=== PATIENT | male | born 1965 | race African-American/Black ===

== ENCOUNTER 2020-06-26 23:31 | Observation (INO) | payer OTHER, SELFPAY ==
[2020-06-27] MEDS ORDERED: NS 1,000 ML IV SCH (00:15)
[2020-06-27 00:29] LABS: BASO % 0.4 % (0.0-1.0); EOS # 0.2 10^3/uL (0.0-0.5); EOS % 4.3 % (0.0-3.0); HEMATOCRIT 47.6 % (42.0-52.0); HEMOGLOBIN 15.3 g/dl (13.5-17.5); LYMPH # 1.8 10^3/uL (1.5-5.0); LYMPH % 34.7 % (24.0-44.0); MEAN CORPUSCULAR HEMOGLOBIN 25.9 pg (27.0-33.0); MEAN CORPUSCULAR HGB CONC 32.1 g/dl (32.0-36.5); MEAN CORPUSCULAR VOLUME 80.7 fl (80.0-96.0); MONO # 0.5 10^3/uL (0.0-0.8); MONO % 9.9 % (0.0-5.0); NEUTROPHILS # 2.6 10^3/uL (1.5-8.5); NEUTROPHILS % 50.5 % (36.0-66.0); PLATELET COUNT, AUTOMATED 277 10^3/uL (150-450); WHITE BLOOD COUNT 5.1 10^3/uL (4.0-10.0)
[2020-06-27 00:47] LABS: ACETAMINOPHEN LEVEL < 2.0 UG/ML (10.0-30.0); ALBUMIN 3.8 GM/DL (3.2-5.2); ALT/SGPT 45 U/L (12-78); BILIRUBIN,DIRECT 0.1 MG/DL (0.0-0.2); BILIRUBIN,TOTAL 0.3 MG/DL (0.2-1.0); BLOOD UREA NITROGEN 19 MG/DL (7-18); CALCIUM LEVEL 9.3 MG/DL (8.5-10.1); CARBON DIOXIDE LEVEL 27 MEQ/L (21-32); CHLORIDE LEVEL 107 MEQ/L (98-107); CK-MB VALUE MASS 10.6 NG/ML (<3.6); CPK CREATINE PHOSPHOKINASE 840 U/L (39-308); CREATININE FOR GFR 1.34 MG/DL (0.70-1.30); ETHYL ALCOHOL (ETHANOL) < 0.003 % (0.000-0.010); GLOMERULAR FILTRATION RATE 58.9 (>56); GLUCOSE, FASTING 104 MG/DL (70-100); MB/CK RELATIVE INDEX 1.26 (< OR =4); POTASSIUM SERUM 3.8 MEQ/L (3.5-5.1); SALICYLATE LEVEL < 1.7 MG/DL (5.0-30.0); SODIUM LEVEL 140 MEQ/L (136-145); THYROID STIMULATING HORMONE 0.927 uIU/ML (0.358-3.740); TOTAL PROTEIN 6.7 GM/DL (6.4-8.2); TROPONIN I < 0.02 NG/ML (< 0.10)
--- NOTE | 2020-06-27 01:10 | REPVR ---
PROCEDURE INFORMATION: Exam: XR Chest, 1 View Exam date and time: 06/27/2020 12:57 AM Age: 55 years old Clinical indication: Other: AMS; Additional info: Altered mental status TECHNIQUE: Imaging protocol: XR of the chest Views: 1 view. COMPARISON: No relevant prior studies available. FINDINGS: Lungs: Degree of lung inflation is normal. No evidence of pulmonary edema. No focal consolidation or parenchymal lung mass. Pleural space: No pleural effusion or pneumothorax. Heart/Mediastinum: Cardiac silhouette appears normal. No adenopathy or hilar mass. Bones/joints: Osseous structures show no concerning abnormality. IMPRESSION: No acute or focal cardiopulmonary process. Electronically signed by: Ayo Hoang On 06/27/2020 01:09:47 AM
--- NOTE | 2020-06-27 01:13 | REPVR ---
PROCEDURE INFORMATION: Exam: CT Head Without Contrast Exam date and time: 06/27/2020 12:39 AM Age: 55 years old Clinical indication: Pain; Headache; Additional info: Altred mental status TECHNIQUE: Imaging protocol: Computed tomography of the head without contrast. Radiation optimization: All CT scans at this facility use at least one of these dose optimization techniques: automated exposure control; mA and/or kV adjustment per patient size (includes targeted exams where dose is matched to clinical indication); or iterative reconstruction. COMPARISON: No relevant prior studies available. FINDINGS: Brain: No intracranial mass, mass effect or midline shift. No acute intracranial hemorrhage. No CT evidence of acute cortical infarct. Ventricles, cisterns, and sulci are normal in size for age. Bones/joints: No calvarial fracture or destructive process. Paranasal sinuses: Imaged paranasal sinuses are normally aerated. Mastoid air cells: Mastoid air cells and middle ear structures are normally aerated. Orbital cavity: Imaged orbits are unremarkable. Soft tissues: No focal extracranial soft tissue swelling. IMPRESSION: No acute or concerning focal intracranial abnormality. Electronically signed by: Ayo Hoang On 06/27/2020 01:13:29 AM
[2020-06-27 01:42] LABS: AMPHETAMINES LEVEL URINE POSITIVE (NEGATIVE); BARBITURATES URINE NEGATIVE (NEGATIVE); BENZODIAZEPINES URINE NEGATIVE (NEGATIVE); CANNABINOIDS URINE NEGATIVE (NEGATIVE); COCAINE METABOLITE URINE NEGATIVE (NEGATIVE); METHADONE URINE NEGATIVE (NEGATIVE); OPIATES URINE NEGATIVE (NEGATIVE); PHENCYCLIDINE URINE NEGATIVE (NEGATIVE)
[2020-06-27] MEDS ORDERED: NS 1,000 ML IV ONE (02:00)
--- NOTE | 2020-06-27 03:27 | REPVR ---
PROCEDURE INFORMATION: Exam: US Retroperitoneal Limited, Kidneys Exam date and time: 06/27/2020 2:50 AM Age: 55 years old Clinical indication: Abnormal findings; Abnormal lab test; Abnormal kidney function lab tests; Additional info: Acute renal failure TECHNIQUE: Imaging protocol: Real-time ultrasound of the retroperitoneum with image documentation. Examination was focused on the kidneys. COMPARISON: No relevant prior studies available. FINDINGS: Right kidney: No hydronephrosis. Left kidney: 3 x 2.5 cm left renal cyst containing internal low-level echoes. Simple 2.6 cm left renal cyst. No hydronephrosis. IMPRESSION: No acute findings. COMMENTS: Consistent with the [employer]'s Incidental Findings Committee white paper (J Am Dahlia Radiol 2018): Any incidental renal lesion less than 1 cm or classified as too small to characterize, or any incidental cystic renal lesion characterized as simple-appearing, is likely benign. No follow-up imaging is recommended for these lesions per consensus recommendations based on imaging criteria. Electronically signed by: Mike Ward On 06/27/2020 03:27:13 AM
[2020-06-27] MEDS ORDERED: D5W/0.45% SODIUM CHLORIDE 1,000 ML IV SCH (05:08)
[2020-06-27] MEDS ORDERED: ENOXAPARIN 40MG/0.4ML SYRINGE (J1650 PER 10MG) SC ONE (05:15)
[2020-06-27] MEDS ORDERED: GLUCAGON INJ 1MG VIAL SC PRN (05:15)
[2020-06-27] MEDS ORDERED: GLUCOSE 4GM CHEW TABLET PO PRN (05:15)
[2020-06-27] MEDS ORDERED: DEXTROSE 50% 50 ML SYRINGE IV PRN (05:15)
--- NOTE | 2020-06-27 05:16 | HPEPDOC ---
[facility] Medical History & Physical Date of Admission Jun 27, 2020 Date of Service: Jun 27, 2020 History and Physical CHIEF COMPLAINT: altered mental status HISTORY OF PRESENT ILLNESS: (obtunded,Unable to obtain ) 55-year-old -[place] male was found in the parking lot, poorly responsive. Bystander called 911. Patient was brought in by ambulance for further evaluation. According to records, patient was thought to be using LSD. Urine tox screen was positive for methamphetamine. CT of the head and chest x- ray were both negative. CBC, metabolic panel, liver function tests were all within normal limits. Total CPK was 800. Urine for myoglobin is pending. Creatinine was 1.3. Hospitalist was asked to admit for acute toxic encephalopathy intentional use of LSD and acute kidney injury from mild rhabdomyolysis PAST MEDICAL HISTORY: Could not be obtained as patient has altered mental status PAST SURGICAL HISTORY: Could not be obtained as patient has altered mental status SOCIAL HISTORY: Unable to be obtained, recreational drug use with LSD FAMILY HISTORY: Unable to be obtained ALLERGIES: Please see below. REVIEW OF SYSTEMS: Could not be obtained HOME MEDICATIONS: Please see below. PHYSICAL EXAMINATION: VITAL SIGNS: See below GENERAL APPEARANCE: Obtunded, does not follow commands HEENT: No thyromegaly, cervical lymphadenopathy. Dry mucous membranes CARDIOVASCULAR: S1, S2, sinus rhythm LUNGS: Clear to auscultation. No wheezing, rales or rhonchi ABDOMEN: Soft, nontender, nondistended, positive bowel sounds EXTREMITIES: No cyanosis, clubbing or pitting edema NEUROLOGICAL: Obtunded. No facial asymmetry. Could not be completed LABORATORY DATA: See below. IMAGING: Exam: CT Head Without Contrast Exam date and time: 06/27/2020 12:39 AM Age: 55 years old Clinical indication: Pain; Headache; Additional info: Altred mental status TECHNIQUE: Imaging protocol: Computed tomography of the head without contrast. Radiation optimization: All CT scans at this facility use at least one of these dose optimization techniques: automated exposure control; mA and/or kV adjustment per patient size (includes targeted exams where dose is matched to clinical indication); or iterative reconstruction. COMPARISON: No relevant prior studies available. FINDINGS: Brain: No intracranial mass, mass effect or midline shift. No acute intracranial hemorrhage. No CT evidence of acute cortical infarct. Ventricles, cisterns, and sulci are normal in size for age. Bones/joints: No calvarial fracture or destructive process. Paranasal sinuses: Imaged paranasal sinuses are normally aerated. Mastoid air cells: Mastoid air cells and middle ear structures are normally aerated. Orbital cavity: Imaged orbits are unremarkable. Soft tissues: No focal extracranial soft tissue swelling. IMPRESSION: No acute or concerning focal intracranial abnormality. Electronically signed by: Ayo Hoang On 06/27/2020 01:13:29 AM MICROBIOLOGY: Please see below. Exam: XR Chest, 1 View Exam date and time: 06/27/2020 12:57 AM Age: 55 years old Clinical indication: Other: AMS; Additional info: Altered mental status TECHNIQUE: Imaging protocol: XR of the chest Views: 1 view. COMPARISON: No relevant prior studies available. FINDINGS: Lungs: Degree of lung inflation is normal. No evidence of pulmonary edema. No focal consolidation or parenchymal lung mass. Pleural space: No pleural effusion or pneumothorax. Heart/Mediastinum: Cardiac silhouette appears normal. No adenopathy or hilar mass. Bones/joints: Osseous structures show no concerning abnormality. IMPRESSION: No acute or focal cardiopulmonary process. Electronically signed by: Ayo Hoang On 06/27/2020 01:09:47 AM Exam: US Retroperitoneal Limited, Kidneys Exam date and time: 06/27/2020 2:50 AM Age: 55 years old Clinical indication: Abnormal findings; Abnormal lab test; Abnormal kidney function lab tests; Additional info: Acute renal failure TECHNIQUE: Imaging protocol: Real-time ultrasound of the retroperitoneum with image documentation. Examination was focused on the kidneys. COMPARISON: No relevant prior studies available. FINDINGS: Right kidney: No hydronephrosis. Left kidney: 3 x 2.5 cm left renal cyst containing internal low-level echoes. Simple 2.6 cm left renal cyst. No hydronephrosis. IMPRESSION: No acute findings. ASSESSMENT: 55-year-old brought in confused found to be using LSD in his car, admitted for acute toxic encephalopathy Acute toxic encephalopathy Recreational drug use with LSD, intentional Acute kidney injury Rhabdomyolysis Amphetamine use plan: IV fluid hydration, supportive care. Nothing by mouth due to risk of aspiration until patient's mentation returns to baseline Renal ultrasound negative for obstruction or hydronephrosis. Cycle cardiac markers, recheck ammonia level Check for postvoid residual. If urine output is less than 30 miles per hour. DVT prophylaxis with Lovenox. Vital Signs Vital Signs Date Time Temp Pulse Resp B/P (MAP) Pulse Ox O2 Delivery O2 Flow Rate FiO2 06/27/20 01:21 97.9 06/27/20 00:02 84 17 131/82 90 Room Air Laboratory Data Labs 24H Laboratory Tests 2 06/27/20 00:01: Immature Granulocyte % (Auto) 0.2, Neutrophils (%) (Auto) 50.5, Lymphocytes (%) (Auto) 34.7, Monocytes (%) (Auto) 9.9H, Eosinophils (%) (Auto) 4.3H, Basophils (%) (Auto) 0.4, Neutrophils # (Auto) 2.6, Lymphocytes # (Auto) 1.8, Monocytes # (Auto) 0.5, Eosinophils # (Auto) 0.2, Basophils # (Auto) 0.0, Nucleated Red Blood Cells % (auto) 0.0, Anion Gap 6L, Glomerular Filtration Rate 58.9, Calcium Level 9.3, Total Bilirubin 0.3, Direct Bilirubin 0.1, Aspartate Amino Transf (AST/SGOT) 30, Alanine Aminotransferase (ALT/SGPT) 45, Alkaline Phosphatase 99, Total Creatine Kinase 840H, Creatine Kinase MB 10.6H, Creatine Kinase MB Relative Index 1.26, Troponin I < 0.02, Total Protein 6.7, Albumin 3.8, Albumin/Globulin Ratio 1.3, Thyroid Stimulating Hormone (TSH) 0.927, Salicylates Level < 1.7L, Acetaminophen Level < 2.0L, Ethyl Alcohol Level < 0.003 06/27/20 00:30: Urine Color YELLOW, Urine Appearance CLEAR, Urine pH 6.0, Urine Specific [place] 1.016, Urine Protein 1+H, Urine Glucose (UA) NEGATIVE, Urine Ketones NEGATIVE, Urine Blood NEGATIVE, Urine Nitrite NEGATIVE, Urine Bilirubin NEGATIVE, Urine Urobilinogen 0.2, Urine Leukocyte Esterase TRACEH, Urine WBC (Auto) 3, Urine RBC (Auto) 2, Urine Hyaline Casts (Auto) 0, Urine Bacteria (Auto) NEGATIVE, Urine Squamous Epithelial Cells 0, Urine Transitional Epithelial Cells 2, Urine Mucus (Auto) SMALL, Urine Sperm (Auto) , Urine Opiates Screen NEGATIVE, Urine Methadone Screen NEGATIVE, Urine Barbiturates Screen NEGATIVE, Urine Phencyclidine Screen NEGATIVE, Urine Amphetamines Screen POSITIVEH, Urine Benzodiazepines Screen NEGATIVE, Urine Cocaine Metabolite Screen NEGATIVE, Urine Cannabinoids Screen NEGATIVE CBC/BMP Laboratory Tests 06/27/20 00:01 Microbiology Microbiology 06/27/20 Urine Culture, Received Pending Home Medications Unable to Obtain Active Prescriptions or Reported Meds Allergies Coded Allergies: Unable to Assess (Verified Allergy, Unknown, 06/27/20) A-FIB/CHADSVASC A-FIB History Current/History of A-Fib/PAF?: No Current PO Anticoag Therapy: No Age/Risk Factor Scoring CHADSVASC: CHADSVASC Response (Comments) Value Age Risk Factor Age < 65 years old 0 Gender Risk Factor Male 0 Hx of CHF No 0 Hx of HTN No 0 Hx of Stroke/TIA/or VTE No 0 Hx of Diabetes No 0 Hx of Vascular Disease No 0 Total 0 Treatment Treatment ordered: NONE MOIZ RASCON MD Jun 27, 2020 01:58
[2020-06-27 07:48] LABS: CK-MB VALUE MASS 9.5 NG/ML (<3.6); CPK CREATINE PHOSPHOKINASE 657 U/L (39-308); MB/CK RELATIVE INDEX 1.45 (< OR =4); TROPONIN I < 0.02 NG/ML (< 0.10)
--- NOTE | 2020-06-27 10:21 | ECGEPIP ---
[facility] - ED Test Date: 2020-06-26 Pat Name: DIDI MAYORGA Department: Room: [place] [address] Gender: Male Administrative Staff Supervisor: SAGRARIO : 1965 Requested By: RAEANN Jones Order Number: [id number] Reading MD: Raúl Alcantar Measurements Intervals [place] Rate: 85 P: 67 DC: 144 QRS: 27 QRSD: 85 T: 52 QT: 364 QTc: 435 Interpretive Statements SINUS RHYTHM NO PRIORS FOR COMPARISON Electronically Signed on 06-27-2020 10:21:44 EST by Raúl Alcantar
[2020-06-27 10:45] VITALS: BP 111/79
--- NOTE | 2020-06-27 13:28 | DS ---
DATE OF ADMISSION: 06/27/2020 DATE OF DISCHARGE: 06/27/2020 PRINCIPAL DIAGNOSIS: 1. LSD intoxication. 2. Minimal rhabdomyolysis. BRIEF HISTORY: Vasyl Orlando was brought to the Emergency Room after taking LSD. He had a minimally elevated CK as well as it was felt he needed hospitalization. HOSPITAL COURSE: He stayed in the ER in an interim bed. His CK was only 840 on admission, it was 657 this morning. He has no myoglobin in his urine. PHYSICAL EXAMINATION: VITAL SIGNS: Stable. GENERAL APPEARANCE: He is alert and conversant, he is sleeping but wakes up and answers questions appropriately. He is alert and oriented x3. He says he does not want to stay in the hospital. LUNGS: Clear. HEART: Regular rhythm. ABDOMEN: Soft. NEUROLOGIC: Nonfocal. IMPRESSION: Patient had minimal elevation of CK which has improved. I do not think he needs hospitalization. I will ask PFS to see him to offer options for dealing with his drug use and then he can be discharged after seen by PFS. He should follow-up with his PCP in a week. Diet and activity as tolerated. MTDD
[2020-06-28] MEDS ORDERED: ENOXAPARIN 40MG/0.4ML SYRINGE (J1650 PER 10MG) SC SCH (09:00)
== END 2020-06-27 11:01 | disposition home or self-care (01) ==
LOC: M ED 23:31 → M ED INP 23:32 → INTOOBSV 23:32
PROVIDERS: ADMIT General Practice; ATTEND General Practice
DX: T40.8X1A Poisoning by lysergide [LSD], accidental (unintentional), initial encounter (principal); M62.82 Rhabdomyolysis; G92 Toxic encephalopathy; N17.9 Acute kidney failure, unspecified; F15.10 Other stimulant abuse, uncomplicated
CPT/HCPCS: 36415; 36600; 51701; 70450; 71045; 76775; 80048; 80076; 80307; 81001; 81002; 82140; 82550; 82553; 84443; 84484; 85025; 87086; 93005; 93041; 94760; 96360; 96361; 96372; 99285; G0378; G0480; U0002